=== PATIENT | male | born 1980 | race Caucasian/White ===

== ENCOUNTER 2018-10-15 11:22 | Outpatient (REF) | payer BC, SELFPAY ==
[2018-10-15 12:32] LABS: ALT 35 U/L (12-78); AST 33 U/L (15-37); Cholesterol 179 mg/dL (50-200); HDL Cholesterol 51 mg/dL (40-60); LDL CHOLESTEROL 116 mg/dL (<100); Triglyceride 43 mg/dL (30-150)
[2018-10-16 10:18] LABS: HIV-1/2 Ag & Ab Screen Negative (NEGAT)
== END 2018-10-15 11:42 ==
LOC: NCHCN 11:22
PROVIDERS: Visit Provider Nurse Practitioner Family
DX: Z00.00 Encounter for general adult medical examination without abnormal findings (principal); Z11.4 Encounter for screening for human immunodeficiency virus [HIV]; Z13.220 Encounter for screening for lipoid disorders
CPT/HCPCS: 80061; 83721; 87389; 84450; 84460

== ENCOUNTER 2020-07-08 12:38 | Emergency (ER) | payer MEDICAID, SELFPAY ==
[2020-07-08 12:43] VITALS: BP 124/74; PULSE 60; RESP 15; TEMP 36.3; O2SAT 98
--- NOTE | 2020-07-08 13:00 | DI.RAD_ITS ---
EXAM: XR HAND RT COMPLETE CLINICAL HISTORY: pain/lac over 4th mcp, pain in hand and 4th dig. TECHNIQUE: 2D digital imaging was performed. COMPARISON: No exams were available for comparison FINDINGS: BONES: No acute fracture is present. No bony destructive lesion is seen. Smoothly marginated small b eldon densities are seen near the ulnar styloid, likely related to previous trauma. A cyst is noted in the lunate. JOINTS: No dislocation present. SOFT TISSUE: Soft tissue swelling is seen over the dorsum of the hand. IMPRESSION: Posterior soft tissue swelling. No evidence of acute fracture or foreign body.. DATA REPOSITORY: RADIATION DOSE DELIVERED:
--- NOTE | 2020-07-08 13:10 | W.ED.GENAD ---
Discharge Plan Disposition Patient Disposition: HOME Condition: Stable Discharge Details Clinical Impression: Contusion of hand, Hand laceration Primary Care Provider: None,None ED Provider: Lisandro Hernandez Home Meds and New Rx's Prescriptions: No Action No Known Home Meds RF: 0 Discharge Instructions Instructions: Laceration (ED), Contusion in Adults (ED) Additional Instructions: X-ray is unremarkable for obvious bony abnormality or dislocation. Tetanus status is up-to-date. The wound was appropriately cleaned and after discussion we opted to apply Dermabond. Fingers were then tomy taped and an ulnar gutter splint was applied. Cool compresses every 2 hours for 20 minutes. Zsvq-[id number]-[id number] Tylenol and/or Motrin as directed for discomfort. Please watch for new or worsening symptoms and return to the ER for any concerns. Wear tomy taping and splint as needed, advance activity as tolerated. Dermabond will come off on its own in approximately 5-7 days. I do recommend reaching out your primary care provider tomorrow for prompt outpatient reevaluation. I am giving you the name and number of our local orthopedic team. If you are not doing significantly better with conservative care over the next 5-7 days, I do recommend being evaluated by orthopedics as well. Referrals: Ron Soler MD [ [facility] STAFF PHYSICIAN] - Discharge Data Discharge Date/Time-TO BE ENTERED AT DEPARTURE: 07/08/20 14:28 Medical Decision Making [id number] 40-year-old gentleman slipped and accidentally struck his right hand. He has a small laceration and a hand contusion. Tetanus up-to-date. Will obtain x-ray to rule any bony involvement. Neuro, vascular, tendon intact. We discussed options for closure of the well approximated laceration. He is comfortable with Dermabond. Wound was thoroughly cleaned and irrigated. I then applied Dermabond. Patient tolerated well. X-ray read by radiology as negative. Discussed x-ray findings with patient. Plan is to tomy tape the third and fourth digit together, and then placed the right hand-wrist into an ulnar gutter splint. He will advance activity as tolerated. He has no additional questions or concerns and is comfortable with that plan. Medical Records Medical records reviewed: Yes I reviewed the patient's medical records. Imaging Data Radiologic Study: Attestation: I personally reviewed and interpreted this imaging study as follows: Imaging: X-Ray Radiologist's impression: Right hand x-ray read by radiology as no fracture or dislocation. HPI General Mode of arrival: ambulatory. Date/Time Provider Initiated Documentation: 07/08/20 13:00. Limitations to Documentation: no limitations. Information obtained by: patient. HPI Narrative: This is a 40-year-old gentleman, [id number], who denies significant past medical history. He reports that earlier this morning he was crushing boxes, slipped, striking his hand on the garage. He did not fall to the ground. He sustained a laceration over his fourth knuckle, reports that his fourth digit feels tingling not true numbness. He has localized discomfort over his fourth and fifth meta carpals as well as his fourth digit. Reports the pain is mild-moderate, worse with movement. He denies any other injuries whatsoever. Denies pain that goes into his wrist. Tetanus status was last updated less than 1 year ago. Related Data Home Medications Medication Instructions Recorded Confirmed Unknown [No Known Home Meds] 07/08/20 07/08/20 Allergies Allergy/AdvReac Type Severity Reaction Status Date / Time No Known Allergies Allergy Unverified 07/08/20 12:51 General Stated Complaint: Orthopedic SHIRLEY: 3 Review of Systems Constitutional Constitutional: Denies fever(s) Musculoskeletal Musculoskeletal: Reports arthralgias, Reports joint swelling, Denies numbness, Reports stiffness and Reports tingling Integumentary/Breasts Skin/Breast: Denies erythema Neurologic Neurologic: Denies numbness and Reports tingling [facility] Social History Smoking/Tobacco Use Status: Never Smoking risk assessment performed?: Yes Alcohol Intake: never Drug use: Occasionally Substance use type: marijuana Do you feel safe at home: Yes Do you feel safe in your relationship?: Yes Exam Const General: cooperative, healthy appearing, comfortable and no acute distress Orientation: alert and awake [facility] Head: normal to inspection, normocephalic and atraumatic Mouth: moist mucous membranes Eyes Conjunctivae: conjunctivae normal Neck Neck: normal visual inspection, trachea midline and supple Resp Effort & Inspection: normal respiratory effort and able to speak in complete sentences Cardio Rate: regular rate Rhythm: regular rhythm Skin General skin exam: no rashes or lesions noted Neuro General: patient alert, patient awake, moves all extremities and no focal motor deficits Sensory Exam: no sensory deficits noted Extrem Right upper extremity: wrist Details: normal to inspection, normal ROM and normal vascular exam; no tenderness and no swelling and hand Details: normal capillary refill, neuromotor exam normal, neurosensory exam normal, tendon exam normal, tenderness, abnormal ROM of finger, swelling and laceration Hand/finger images: 1. There is a 1 cm well approximated laceration. No active bleeding. No obvious foreign body. Minimal discomfort. Neuro, vascular, tendon intact. 2. Minimal swelling, tenderness, ecchymosis. Patient is fully able to extend the fourth digit but has limited flexion secondary to discomfort and tightness. Normal capillary refill. Neuro, vascular, tendon intact. Psych Appearance: grossly normal Mental Status: mental status grossly normal Course Vital Signs Vital signs: Vital Signs Temperature 36.3 C L 07/08/20 12:43 Pulse 60 07/08/20 12:43 Respiratory Rate 15 07/08/20 12:43 Blood Pressure 124/74 07/08/20 12:43 Pulse Oximetry 98 07/08/20 12:43 Temperature 36.3 C L 07/08/20 12:43 Temperature Source Temporal Artery Scan 07/08/20 12:43 Pulse 60 07/08/20 12:43 Respiratory Rate 15 07/08/20 12:43 Respiratory Effort Non-Labored 07/08/20 12:50 Blood Pressure 124/74 07/08/20 12:43 Blood Pressure Position Sitting 07/08/20 12:43 Pulse Oximetry 98 07/08/20 12:43 Oxygen Delivery Method Room Air 07/08/20 12:43 Oxygen Flow Rate 0 07/08/20 12:43 Pain Level 6 07/08/20 12:55
--- NOTE | 2020-07-08 13:28 | DI.VRAD_ITS ---
PROCEDURE INFORMATION: Exam: XR Right Hand Exam date and time: 07/08/2020 1:21 PM Age: 40 years old Clinical indication: Other: Pain/lac over 4th mcp, pain in hand and 4th dig TECHNIQUE: Imaging protocol: XR Right hand. Views: 3 or more views. COMPARISON: No relevant prior studies available. FINDINGS: Bones/joints: There is nonspecific well corticated osseous density projecting over distal radioulnar joint. Soft tissues: Normal. IMPRESSION: No acute fracture or dislocation. Dictated and Authenticated by: Giovanny Yu MD. Ordering:JONATAN Mcmahon MD
== END 2020-07-08 14:28 | disposition home or self-care (01) ==
PROVIDERS: Emergency Provider Physician Assistant
DX: S61.411A Laceration without foreign body of right hand, initial encounter (principal); W01.198A Fall on same level from slipping, tripping and stumbling with subsequent striking against other object, initial encounter
CPT/HCPCS: 12001; 73130

== ENCOUNTER 2024-11-06 10:22 | Emergency (ER) | payer OTHER, SELFPAY ==
--- NOTE | 2024-11-06 10:23 | ED.GENADUL_ITS ---
Discharge Plan Disposition Patient Disposition: Home Discharge Details Clinical Impression: Dog bite of left forearm Primary Care Provider: Deandre Gayle ED Provider: Yordy Vickers Home Meds and New Rx's Prescriptions: New amoxicillin-pot clavulanate 875-125 mg tablet 1 tab PO BID 7 Days Qty: 14 0RF Discharge Instructions Instructions: Animal Bites ED Additional Instructions: You are seen in the emergency department for your dog bite. Your x-ray showed no sign of any retained teeth. As we discussed please take this antibiotics as directed. Please return to the emergency department if you develop streaking signs of infection fevers chills or any foul-smelling drainage from your wound. You will need to have your stitches removed in 7 to 10 days. This can be acco mplished at the emergency department with your primary care provider or at [facility]. For your pain please take medications as follows: 1. Take acetaminophen (Tylenol), 1,000 mg (two 500 mg tabs) every 6 hours [2. Take ibuprofen (Advil), 400 mg every 6 hours.] Stand Alone Forms: Work Release Discharge Data Discharge Date/Time-TO BE ENTERED AT DEPARTURE: 11/06/24 12:07 HPI General Date/Time Provider Initiated Documentation: 11/06/24 10:23 . HPI Narrative: MDM Primary survey intact. Reassuring shock index. On secondary survey patient has 2 puncture wounds to his left forearm. Will irrigate following LET is plain films to assess for any teeth from dog. Will confirm dog has received rabies immunization. Patient notes that he has recently received a tetanus immunization as he was reportedly bit by human work. Will prophylax with amoxicillin clavulanic acid. Sensation and motor function intact in the left hand so I am not concern for tendon injury. 11:55 AM All 4 wounds were irrigated extensively. The largest most proximal wound was c losed with one 4-0 Prolene suture. Patient and I discussed that he should return to the ED for fevers streaking signs of infection foul-smelling drainage or any other concerns. X-ray read as unremarkable. Will discharge on amoxicillin clavulanic acid with strict return indications. Health apartment community assistant manager Nancy spoke with the dog owners. Dog is up-to-date with immunizations and dog will be monitored. No indication for prophylaxis against rabies. HPI This is a amqhy-uhbw-urkizkdy 44-year-old male not on any routine home medications arriving to emergency department via private vehicle with his in setting of a dog bite. Patient reports that he was running today and a neighbor's dog bit him on the left forearm. He reports that this occurred approximately 30 minutes prior to arrival. He notes that he was bit recently at work by a human and received tetanus immunization. He woke in his usual state of health earlier today. He is not anticoagulated. Exam General: Well-appearing in no acute distress speaking in complete sentences. Head: Normocephalic, atraumatic. Eye: Extraocular eye movements intact. No conjunctival injection. No scleral icterus. Ear, nose, mouth, throat: Grossly normal inspection. Normal voice, handling secretions normally. Neck: Trachea midline. Cardiovascular: Well-perfused distal extremities. Respiratory: Nonlabored respiration. Gastrointestinal: Nondistended abdomen. Musculoskeletal: There are few lower wounds in total on the patient's left upper extremity. On the dorsal surface of the left proximal forearm there is an approximately 2 x 2 cm puncture laceration with minor venous oozing. More distally there is approximately 1 x 1 cm puncture laceration. On the volar surface of the left proximal forearm there are 2 smaller approximately 1 x 1 cm puncture wounds are hemostatic. Sensation motor function intact in the left hand across the radial, median, ulnar nerve distributions. Cap refill less than 2 seconds in the fingertips. 2+ left radial pulse. Skin: Normal for age and race, grossly normal temperature and turgor. No acute rash. Neurologic: Alert and appropriate, no apparent acute deficits. GCS 15. Related Data Home Medications ?Medication ?Instructions ?Recorded ?Confirmed amoxicillin 875 mg-potassium 1 tab PO BID 7 days #14 tabs 11/06/24 clavulanate 125 mg tablet Previous Rx's ?Medication ?Instructions ?Recorded amoxicillin 875 mg-potassium 1 tab PO BID 7 days #14 tabs 11/06/24 clavulanate 125 mg tablet Allergies Allergy/AdvReac Type Severity Reaction Status Date / Time No Known Allergies Allergy Unverified 11/06/24 10:31 General SHIRLEY: 3 Procedure Laceration Laceration 1: Date of Procedure: 11/06/24 Time of procedure: 11:54 Provider that performed the procedure: Yordy Vickers Patient Consented: Verbally Site: upper extremity Side (If applicable): left Description: linear Depth: simple, single layer Local anesthetic: Lidocaine 1%, with Epi and LET(lidocaine epinephrine tetracaine) Amount of anesthesia used (mL): 8 Pre-repair:: wound explored, irrigated extensively and deep structures intact Suture size: 4-0 (Prolene) Number of sutures:: 1 Technique: simple, interrupted Medical Decision Making Quality:SDOH Health Related Social Needs: No Data to Display PFSH All Active Problems (Updated 11/06/24 @ 10:56 by Yordy Vickers MD) Dog bite of left forearm (Acute) Acute medial meniscal tear (Acute 09/04/14) H/O surgical procedure (Chronic) a. wisdom teeth extractions Torn ACL (Acute 09/04/14) Social History Smoking/Tobacco Use Status: Never Smoking risk assessment performed?: Yes Alcohol Intake: never Drug use: Occasionally Substance use type: marijuana Do you feel safe at home: Yes Do you feel safe in your relationship?: Yes
[2024-11-06 10:30] VITALS: BP 147/81; PULSE 80; RESP 18; TEMP 36.4; O2SAT 98
[2024-11-06 10:32] VITALS: BP 147/81; PULSE 80; RESP 18; TEMP 36.4; O2SAT 98
[2024-11-06] MEDS: Ibuprofen 600 MG TAB PO (10:43)
[2024-11-06] MEDS: Acetaminophen 500 MG TAB 1000 MG PO (10:43)
[2024-11-06] MEDS: Lidocaine/Epinephri/Tetracaine Topical Gel 3 ML TP (10:43)
[2024-11-06] MEDS: Amoxicillin 875/Clav. 125 TAB PO (10:43)
--- NOTE | 2024-11-06 11:00 | DI.RAD_ITS ---
Exam(s) XR FOREARM LT EXAM: XR FOREARM LT CLINICAL HISTORY: Dog bite dorsal surface. TECHNIQUE: 2D digital imaging was performed. COMPARISON: No exams were available for comparison FINDINGS: Two views. There is soft tissue posttraumatic changes at the mid level of the forearm located dorso laterally. There is no radiopaque foreign body. No gas in the soft tissues. No evidence of fracture. No evidence of osteomyelitis. No incidental osseous lesions. Visualized elbow and wrist appear unremarkable. IMPRESSION: Mid level soft tissue findings but no fracture or radiopaque foreign body. No soft tissue gas. DATA REPOSITORY: RADIATION DOSE DELIVERED:
--- NOTE | 2024-11-06 11:36 | DI.VRAD_ITS ---
PROCEDURE INFORMATION: Exam: XR Left Forearm Exam date and time: 11/06/2024 10:59 AM Age: 44 years old Clinical indication: Injury or trauma; Arm, lower; Injury date: 11.06.24; Injury details: Dog bite. Mid left forearm. TECHNIQUE: Imaging protocol: Radiologic exam of the left forearm. Views: 2 views. COMPARISON: No relevant prior studies available. FINDINGS: Bones/joints: No acute fracture or dislocation. 1.2 cm cystic lucency in the scaphoid. Joint spaces maintained. Soft tissues: Posttraumatic soft tissue changes of the forearm. IMPRESSION: No acute fracture or radiopaque foreign body. Dictated and Authenticated by: Tung Rockwell MD. Orderin Alee Scales MD
--- NOTE | 2024-11-06 11:46 | NUR.NOTE ---
Animal bite report faxed to [facility] Clerk, to Henrique Lemus health officer and spoke with Henrique Lemus and he is informed. Nursing Note:
== END 2024-11-06 12:07 | disposition home or self-care (01) ==
LOC: ER 11:25
PROVIDERS: Emergency Provider Emergency Medicine; PCP Family Medicine
DX: S51.852A Open bite of left forearm, initial encounter (principal); W54.0XXA Bitten by dog, initial encounter
CPT/HCPCS: 99283 ×2; 12002; 73090; J2004